=== PATIENT | female | born 1990 | race Caucasian/White ===

== ENCOUNTER 2019-08-17 08:19 | Emergency (ER) | payer BC, SELFPAY ==
[2019-08-17 08:24] VITALS: BP 127/76; PULSE 92; RESP 16; TEMP 36.6; O2SAT 99; BMI 31.3
[2019-08-17 08:46] VITALS: BP 127/76; PULSE 93; RESP 16; O2SAT 97
--- NOTE | 2019-08-17 08:49 | W.ED.GENADLT ---
HPI - General Adult General: Chief complaint: General Medical Stated complaint: heart racing, trouble with vision Time Seen by Provider: 08/17/19 08:49 Source: patient Mode of arrival: ambulatory Limitations: no limitations History of Present Illness: HPI narrative: Patient is a 28-year-old female who presents to ED today with complaints of an episode that occurred while driving today; patient states she began feeling pain behind her eyes, started having tunnel vision, felt anxious that then caused her heart to race and then started developing right-sided headache; patient states that she has had similar episodes previously but never sought evaluation; she does states she has a history of migraines predominantly on the right side behind her right eye; upon arrival patient states chest pain and racing heart has subsided but still complains of right-sided headache; vision is back to normal Location: head and eyes Relieving factors: none Associated symptoms: Reports headache(s) and palpitations (subsided now); Deny chest pain, confusion, dyspnea, nausea, rash or vomiting Treatments prior to arrival: none Review of Systems Const: Denies: fever or chills Eyes: Reports: change in vision, blurry vision and other ( tunnel vision ; vision symptoms have subsided upon arrival) Card: Reports: palpitations (subsided now) and lightheadedness (subsided now ); Denies: chest pain, irregular heart rhythm or shortness of breath when lying down Resp: Denies: shortness of breath, productive cough or pain on inspiration GI: Denies: abdominal pain, nausea, vomiting, heartburn/indigestion or diarrhea : Denies: painful urination Musc: Denies: neck pain, back pain or joint pain Skin/Breast: Denies: rash Neuro: Reports: headache; Denies: numbness in extremities, weakness in extremities, changes in sensation, lack of coordination, difficulty walking, dizziness, vertigo, confusion or slurred speech PFSH ED PFSH: Statuses (acute, chronic, etc) shown below reflect problem list status as previously entered and may not be historically accurate Social History Smoking and tobacco status: former smoker Physical Exam Const: COMMON NORMALS: no apparent distress, oriented x3 and alert GENERAL APPEARANCE: cooperative ORIENTATION/CONSCIOUSNESS: Yes oriented to person, Yes oriented to place and Yes oriented to time HENMT: COMMON NORMALS: normocephalic, head/scalp atraumatic, external ears normal, EAC's normal, TM's normal bilaterally and external nose normal HEAD & SCALP: normal to inspection, normocephalic and atraumatic FACE & SINUS: normal facial exam NOSE: external nose normal EXTERNAL EAR: Yes external ears normal EXTERNAL AUDITORY CANAL: EAC's normal TYMPANIC MEMBRANE: TM's normal bilaterally MOUTH: oral and palatal mucosa normal THROAT: posterior oropharynx normal, tonsils normal and uvula midline Eye: COMMON NORMALS: PERRL and EOMs intact bilaterally PUPIL: Yes PERRL Neck/C-Spine: COMMON NORMALS: full ROM, no lymphadenopathy, supple and no meningeal signs Resp: COMMON NORMALS: normal respiratory effort, no retractions, no use of accessory muscles and clear to auscultation bilaterally AUSCULTATION: clear to auscultation bilaterally Cardio: COMMON NORMALS: regular rate and regular rhythm RATE: regular rate RHYTHM: regular rhythm GI: COMMON NORMALS: normal to inspection, nondistended, normoactive bowel sounds, soft to palpation, non-tender, no hepatosplenomegaly and no masses PALPATION: Yes soft and Yes no hepatosplenomegaly Back/Pelvis: COMMON NORMALS: thoracic and lumbar spine normal to inspection Extremity: COMMON NORMALS: normal to inspection GENERAL: Yes normal exam except as noted Neuro: AMEE COMA SCALE: document GCS findings [place] coma scale eye opening: Spontaneous [place] coma scale verbal response: Orientated [place] coma scale motor response: Obey commands Amee coma scale total score: 15 COMMON NORMALS: oriented x3 and CN's II-XII intact bilaterally SENSORIUM/ORIENTATION: Yes alert, Yes oriented to person, Yes oriented to place and Yes oriented to time MENINGEAL SIGNS: Yes no meningeal signs SPEECH: speech normal GAIT: Yes normal gait Course Vital Signs: Vital signs: Vital Signs Temperature 97.9 F 08/17/19 08:24 Pulse Rate 75 08/17/19 10:51 Respiratory Rate 16 08/17/19 10:51 Blood Pressure 124/79 08/17/19 10:51 Pulse Oximetry 100 08/17/19 10:51 MDM - General Adult MDM Narrative: Medical decision making narrative: Patient has had similar symptoms previously. Work-up today was negative; most likely symptoms are related to an aura associated with migraine headaches. Recommend she follow-up with PCP. Lab Data: Labs: Lab Results 08/17/19 08/17/19 08/17/19 Range/Units 09:00 09:00 09:00 WBC 5.7 (4.0-10.0) 10^3/ uL RBC 4.36 (4.1-5.3) 10^6/u L Hgb 13.9 (11.5-15.3) g/dL Hct 41.0 (37.0-47.0) % MCV 94.0 (81-99) fL MCH 31.9 (28.0-34.0) pg MCHC 33.9 (30.0-36.0) g/dL RDW 11.8 L (12.1-15.1) % Plt Count 168 (130-400) 10^3/c mm MPV 11.6 H (7.4-10.4) fL Neut % (Auto) 64.8 % Lymph % (Auto) 27.3 % Mckenzie % (Auto) 6.4 % Eos % (Auto) 0.7 % Baso % (Auto) 0.4 % Neut # (Auto) 3.7 (1.8-7.7) 10^3/u L Lymph # (Auto) 1.5 (0.8-4.8) 10^3/u L Mckenzie # (Auto) 0.4 (0.2-0.9) 10^3/u L Eos # (Auto) 0.0 (0.0-0.8) 10^3/u L Baso # (Auto) 0.0 (0.0-0.1) 10^3/u L Nucleated RBC % (a uto) 0 % Nucleated RBCs # 0.0 /100WBC Sodium 141 (136-145) mmol/L Potassium 3.9 (3.5-5.1) mmol/L Chloride 106 (98-107) mmol/L Carbon Dioxide 24 (22-29) mmol/L Anion Gap 14.9 (5-19) BUN 8 (6-20) mg/dL Creatinine 0.5 (0.5-0.9) mg/dL GFR Calculation 144.9 H (90-130) mL/min Glucose 111 H (74-109) mg/dL Calcium 9.3 (8.6-10.0) mg/Dl Total Bilirubin 0.4 (0.15-1.2) mg/dL AST 12 (0-32) U/L ALT 10 (0-33) U/L Alkaline Phosphata se 78 (35-105) IU/L Total Protein 6.3 L (6.6-8.7) g/dL Albumin 4.9 (3.5-5.2) g/dL Globulin 1.4 (1.3-4.6) g/dL HCG, Qual Negative (Negative) Urine Color (Yellow) Urine Appearance (CLEAR) Urine pH (5-7) Ur Specific Gravit y (1.005-1.030) Urine Protein (Negative) Urine Glucose (UA) (Normal) Urine Ketones (Negative) Urine Occult Blood (Negative) Urine Nitrate (Negative) Urine Bilirubin (NEGATIVE) Urine Urobilinogen (Negative) mg/dL Ur Leukocyte Jennifer ase (Negative) Urine RBC (0-2) /hpf Urine WBC (0-5) /hpf Ur Squamous Epith Cells (0-5) Urine Bacteria (NONE) Urine Mucus 08/17/19 Range/Units 09:27 WBC (4.0-10.0) 10^3/ uL RBC (4.1-5.3) 10^6/u L Hgb (11.5-15.3) g/dL Hct (37.0-47.0) % MCV (81-99) fL MCH (28.0-34.0) pg MCHC (30.0-36.0) g/dL RDW (12.1-15.1) % Plt Count (130-400) 10^3/c mm MPV (7.4-10.4) fL Neut % (Auto) % Lymph % (Auto) % Mckenzie % (Auto) % Eos % (Auto) % Baso % (Auto) % Neut # (Auto) (1.8-7.7) 10^3/u L Lymph # (Auto) (0.8-4.8) 10^3/u L Mckenzie # (Auto) (0.2-0.9) 10^3/u L Eos # (Auto) (0.0-0.8) 10^3/u L Baso # (Auto) (0.0-0.1) 10^3/u L Nucleated RBC % (a uto) % Nucleated RBCs # /100WBC Sodium (136-145) mmol/L Potassium (3.5-5.1) mmol/L Chloride (98-107) mmol/L Carbon Dioxide (22-29) mmol/L Anion Gap (5-19) BUN (6-20) mg/dL Creatinine (0.5-0.9) mg/dL GFR Calculation (90-130) mL/min Glucose (74-109) mg/dL Calcium (8.6-10.0) mg/Dl Total Bilirubin (0.15-1.2) mg/dL AST (0-32) U/L ALT (0-33) U/L Alkaline Phosphata se (35-105) IU/L Total Protein (6.6-8.7) g/dL Albumin (3.5-5.2) g/dL Globulin (1.3-4.6) g/dL HCG, Qual (Negative) Urine Color Yellow (Yellow) Urine Appearance Clear (CLEAR) Urine pH 6 (5-7) Ur Specific Gravit y 1.010 (1.005-1.030) Urine Protein Neg (Negative) Urine Glucose (UA) Norm (Normal) Urine Ketones Negative (Negative) Urine Occult Blood 3+ H (Negative) Urine Nitrate Negative (Negative) Urine Bilirubin Neg (NEGATIVE) Urine Urobilinogen Norm (Negative) mg/dL Ur Leukocyte Jennifer ase Negative (Negative) Urine RBC 50-80 H (0-2) /hpf Urine WBC None (0-5) /hpf Ur Squamous Epith Cells 0-4 H (0-5) Urine Bacteria Trace (NONE) Urine Mucus 1+ Imaging Data^: CXR: Radiologist's impression: [place] [address] XRay Report Signed Patient: Dora Martel MR#: [id number] : 1990 Acct:[id number] Age/Sex: 28 / F ADM Date: 08/17/19 Loc: ER Attending Dr: Ordering Physician: Devi Roque Date of Service: 08/17/19 Procedure(s): XR chest 1V portable [id number] Accession Number(s): [id number] cc: Devi Roque PROCEDURE INFORMATION: Exam: XR Chest, 1 View Exam date and time: 08/17/2019 8:56 AM Age: 28 years old Clinical indication: Cough; Additional info: Cough/congestion TECHNIQUE: Imaging protocol: XR of the chest Views: 1 view. COMPARISON: No relevant prior studies available. FINDINGS: Lungs: Mild interstitial prominence without acute airspace disease. Pleural space: No pleural effusion. Heart/Mediastinum: No cardiomegaly. Bones/joints: Unremarkable. XR/XR chest 1V portable [id number] IMPRESSION: No acute airspace or pleural disease. Dictated By: Peter José MD 08/17/1933 Signed By: Peter José MD 08/17/1935 CT Head: Radiologist's impression: [place] [address] CT Scan Report Signed Patient: Dora Martel MR#: [id number] : 1990 Acct:[id number] Age/Sex: 28 / F ADM Date: 08/17/19 Loc: ER Attending Dr: Ordering Physician: Devi Roque Date of Service: 08/17/19 Procedure(s): CT head wo con* [id number] Accession Number(s): [id number] cc: Devi Roque PROCEDURE INFORMATION: Exam: CT Head Without Contrast Exam date and time: 08/17/2019 9:30 AM Age: 28 years old Clinical indication: Other: Blurry vision / tunnel vision; Additional info: Villanueva/blurry vision TECHNIQUE: Imaging protocol: Computed tomography of the head without contrast. Total DLP: 769.06 mGy-cm Radiation optimization: All CT scans at this facility use at least one of these dose optimization techniques: automated exposure control; mA and/or kV adjustment per patient size (includes targeted exams where dose is matched to clinical indication); or iterative reconstruction. COMPARISON: No relevant prior studies available. FINDINGS: Brain: Symmetric caliber of cortical sulci. Normal gr-white matter differentiation. No acute cortical infarct, mass effect or intracranial hemorrhage. Ventricles: Normal configuration of the ventricles. Bones/joints: No acute calvarial pathology. Sinuses: No sinus fluid. Mastoid air cells: No mastoid effusion. Soft tissues: Metallic earring with beam hardening artifact. CT/CT head wo con* [id number] IMPRESSION: No acute intracranial pathology. Radiation Dose CTDIVOL = (mGy): DLP = 769.06 (mGy-cm) Dictated By: Peter José MD 08/17/19 1001 Signed By: Peter José MD 08/17/19 1003 EKG Data^: EKG 1: EKG interpretation date: 08/17/19 EKG interpretation time: 08:32 Interpretation: Normal Sinus Rhythm Rate-[address] changes Computer generated interpretation: Chest X-Ray 08/17/19 08:54 IMPRESSION: No acute airspace or pleural disease. Head CT 08/17/19 08:54 IMPRESSION: No acute intracranial pathology. Radiation Dose CTDIVOL = (mGy): DLP = 769.06 (mGy-cm) Discharge Plan Discharge Patient Disposition: Home, Self-Care Clinical Impression: Headache, migraine Qualifiers: Migraine type: with aura Status migrainosus presence: without status migrainosus Intractability: not intractable Qualified Code(s): G43.109 - Migraine with aura, not intractable, without status migrainosus Condition: Stable Prescriptions: No Action No Known Home Medications RF: 0 Discharge Orders: Discharge Order (Routine); Ordered 08/17/19 Ordered By: Devi Roque Referrals: [facility] [Other] Discharge Diet: Usual diet Discharge Activity: Increase activity as tolerated Activity Restrictions/Additional Instructions: Follow up with primary care in the next 1-2 weeks for follow up. May return to ED anytime for continued or worsening symptoms. Discharge Date/Time: 08/17/19 10:53 Coding Level of Care Code ED Working Supervisor for Johanna Lomeli
--- NOTE | 2019-08-17 08:54 | XRR_ITS ---
PROCEDURE INFORMATION: Exam: XR Chest, 1 View Exam date and time: 08/17/2019 8:56 AM Age: 28 years old Clinical indication: Cough; Additional info: Cough/congestion TECHNIQUE: Imaging protocol: XR of the chest Views: 1 view. COMPARISON: No relevant prior studies available. FINDINGS: Lungs: Mild interstitial prominence without acute airspace disease. Pleural space: No pleural effusion. Heart/Mediastinum: No cardiomegaly. Bones/joints: Unremarkable. XR/XR chest 1V portable [id number] IMPRESSION: No acute airspace or pleural disease.
--- NOTE | 2019-08-17 08:54 | CTR_ITS ---
PROCEDURE INFORMATION: Exam: CT Head Without Contrast Exam date and time: 08/17/2019 9:30 AM Age: 28 years old Clinical indication: Other: Blurry vision / tunnel vision; Additional info: Villanueva/blurry vision TECHNIQUE: Imaging protocol: Computed tomography of the head without contrast. Total DLP: 769.06 mGy-cm Radiation optimization: All CT scans at this facility use at least one of these dose optimization techniques: automated exposure control; mA and/or kV adjustment per patient size (includes targeted exams where dose is matched to clinical indication); or iterative reconstruction. COMPARISON: No relevant prior studies available. FINDINGS: Brain: Symmetric caliber of cortical sulci. Normal gr-white matter differentiation. No acute cortical infarct, mass effect or intracranial hemorrhage. Ventricles: Normal configuration of the ventricles. Bones/joints: No acute calvarial pathology. Sinuses: No sinus fluid. Mastoid air cells: No mastoid effusion. Soft tissues: Metallic earring with beam hardening artifact. CT/CT head wo con* [id number] IMPRESSION: No acute intracranial pathology. Radiation Dose CTDIVOL = (mGy): DLP = 769.06 (mGy-cm)
--- NOTE | 2019-08-17 08:54 | ECG_ITS ---
Measurements Intervals [place] Rate: 89 P: 52 VA: 125 QRS: 47 QRSD: 84 T: 49 QT: 337 QTc: 412 SINUS RHYTHM POSSIBLE RIGHT VENTRICULAR CONDUCTION DELAY [RSR (QR) IN V1/V2] No previous ECG available for comparison Electronically Signed On 08-17-2019 17:53:27 [employer] by Bre Arevalo M.D. [email or web address]
[2019-08-17] MEDS: ketorolac 30 mg/mL INJ IVP (09:08)
[2019-08-17] MEDS: sodium chloride 0.9% 1,000 ML 999 ML IV (09:09)
[2019-08-17 09:10] LABS: Basophils % 0.4 %; Eosinophils % 0.7 %; Hemoglobin 13.9 g/dL (11.5-15.3); Lymphocytes # 1.5 10^3/uL (0.8-4.8); Lymphocytes % 27.3 %; Mean Corpuscular HGB Conc 33.9 g/dL (30.0-36.0); Mean Corpuscular Hemoglobin 31.9 pg (28.0-34.0); Mean Platelet Volume 11.6 fL (7.4-10.4); Monocytes # 0.4 10^3/uL (0.2-0.9); Monocytes % 6.4 %; Neutrophils # 3.7 10^3/uL (1.8-7.7); Neutrophils % 64.8 %; Nucleated Red Blood Cells % 0 %; Platelet Count 168 10^3/cmm (130-400); Red Blood Count 4.36 10^6/uL (4.1-5.3); Red Cell Distribution Width 11.8 % (12.1-15.1); White Blood Count 5.7 10^3/uL (4.0-10.0)
[2019-08-17 09:31] LABS: Alanine Aminotransferase 10 U/L (0-33); Albumin Level 4.9 g/dL (3.5-5.2); Alkaline Phosphatase 78 IU/L (35-105); Anion Gap 14.9 (5-19); Aspartate Amino Transferase 12 U/L (0-32); Blood Urea Nitrogen 8 mg/dL (6-20); Calcium 9.3 mg/Dl (8.6-10.0); Carbon Dioxide 24 mmol/L (22-29); Chloride 106 mmol/L (98-107); Globulin 1.4 g/dL (1.3-4.6); Glomerular Filtration Rate 144.9 mL/min (90-130); Glucose 111 mg/dL (74-109); Potassium 3.9 mmol/L (3.5-5.1); Sodium 141 mmol/L (136-145); Total Bilirubin 0.4 mg/dL (0.15-1.2); Total Protein 6.3 g/dL (6.6-8.7)
[2019-08-17 09:34] LABS: HCG, Serum Qual Negative (Negative)
[2019-08-17 09:49] LABS: Add Urine Microscopic? YES; Bilirubin Urine Neg (NEGATIVE); Blood Urine 3+ (Negative); Glucose Urine UA Norm (Normal); Ketones Urine Negative (Negative); Leukocyte Esterase Urine Negative (Negative); Nitrate Urine Negative (Negative); Protein Urine Neg (Negative); Urine Appearance Clear (CLEAR); Urine Color Yellow (Yellow); Urobilinogen Urine Norm (Negative); pH Urine 6 (5-7)
[2019-08-17 09:53] LABS: RBC Urine 50-80 /hpf (0-2); Squamous Epithelial Cell Urine 0-4 (0-5)
[2019-08-17 09:54] LABS: Add Urine Culture? Yes; Bacteria Urine TRACE; Mucus Urine 1+
[2019-08-17 10:23] VITALS: BP 124/79; PULSE 76; RESP 16; O2SAT 98
[2019-08-17 10:51] VITALS: BP 124/79; PULSE 75; RESP 16; O2SAT 100
== END 2019-08-17 10:53 | disposition home or self-care (01) ==
PROVIDERS: Emergency Provider Physician Assistant
DX: G43.109 Migraine with aura, not intractable, without status migrainosus (principal); Z87.891 Personal history of nicotine dependence
CPT/HCPCS: 36415; 70450; 71045; 80053; 81003; 84703; 85025; 87086; 93005; 96360; 96365; 96374; 99282; 99284; J1100; J1885; J7030

== ENCOUNTER → 2019-12-08 14:03 | Outpatient (BNVA) | payer BC, SELFPAY | PROVIDERS: Visit Provider Obstetrics & Gynecology | DX: N94.10 Unspecified dyspareunia (principal); N85.2 Hypertrophy of uterus; N84.1 Polyp of cervix uteri | CPT/HCPCS: 76830 ==

== ENCOUNTER → 2019-12-21 09:13 | Outpatient (BNVA) | payer BC, SELFPAY | PROVIDERS: Visit Provider Obstetrics & Gynecology | DX: Z12.4 Encounter for screening for malignant neoplasm of cervix (principal); R32 Unspecified urinary incontinence | CPT/HCPCS: 80053; 88175 ==

== ENCOUNTER 2021-01-19 22:34 | Emergency (ER) | payer BC, SELFPAY ==
--- NOTE | 2021-01-19 22:59 | XRR_ITS ---
PROCEDURE INFORMATION: Exam: XR Chest Exam date and time: 01/19/2021 10:59 PM Age: 30 years old Clinical indication: Shortness of breath; Additional info: Covid + on January 11. Started symptoms on January 10. Worsening SOB and cough TECHNIQUE: Imaging protocol: XR of the chest. Views: 1 view. COMPARISON: CR XR chest 1V portable [id number] 08/17/2019 9:15 AM FINDINGS: Lungs: There are patchy ground-glass alveolar opacities in both lungs, mostly towards the bases and sparing the left upper lobe. These findings are consistent with the clinical history of COVID-19 infection. There is no pulmonary vascular congestion. Pleural spaces: Unremarkable. No pleural effusion. No pneumothorax. Heart/Mediastinum: Heart is within normal limits of size. Bones/joints: Unremarkable. XR/XR chest 1V portable [id number] IMPRESSION: Bilateral pulmonary alveolar opacities consistent with the clinical diagnosis of COVID-19 infection.
[2021-01-19 23:11] VITALS: BP 123/79; PULSE 110; RESP 22; TEMP 37; O2SAT 96; BMI 34.2
--- NOTE | 2021-01-19 23:40 | ED_ITS ---
HPI - COVID General: Chief Complaint: COVID symptoms Stated Complaint: covid + 01/10, difficulty breathing Time Seen by Provider: 01/19/21 23:25 Triage information: Has fever, cough or shortness of breath . Exposure to COVID + person last 14 days History of Present Illness: HPI Narrative: Patient tested positive for Covid on 01 10 at [facility]. Patient said she had had some symptoms a couple days prior to that. Patient complains about headache nausea vomiting diarrhea and muscle aches since then and having some shortness of breath today. MD complaint: known COVID positive Prior covid testing: yes, results known COVID 19 common symptoms: positive dyspnea, fatigue, body aches, headache(s), loss of sense of smell and/or taste, nausea, vomiting and diarrhea; negative throat pain or nasal congestion COVID 19 other sytmptoms: negative chest pain Severity: moderate Treatment prior to arrival: none COVID Results: No Data to Display Review of Systems Const: Reports: body aches and fatigue Eyes: Denies: change in vision or blurry vision ENMT: Denies: throat pain or nasal congestion Card: Denies: chest pain or dyspnea on exertion Resp: Reports: dyspnea GI: Reports: nausea, vomiting and diarrhea Musc: Denies: extremity pain Skin/Breast: Denies: rash Neuro: Reports: headache(s) Psych: Denies: anxiety or depression Adolfo/Lymph: Denies: easy bruising PFS ED PFSH: Medical History (Updated 01/20/21 @ 00:42 by JARED Palafox) No pertinent past medical history Denies: Hypertension, hypercholesterolemia, heart, liver, lung disease, thyroid problems, DVT/PE. Surgical History S/P adenoidectomy As a child S/P section In [address] Samuels at [facility] [place] for twin gestation S/P tubal ligation Performed at time of in 2016 Family History Father Heart disease Grandmother Diabetes Paternal Hypertension Paternal Grandfather Diabetes Paternal Family/Other Diabetes Paternal aunt and uncle Thyroid condition Paternal Aunt, Maternal Niece Denies family history of Colon cancer Ovarian cancer Hyperlipidemia Breast cancer Uterine cancer Social History (Updated 07/30/20 @ 22:13 by ANITA Carter) Smoking and tobacco status: never smoked Alcohol intake: never Caregiver/support person: Yes Lives independently: Yes Household members: spouse and children Housing: House Marital status: Number of children: 4 Highest education level completed: High School Graduate Current occupational status: employed Sexually active: Yes Current gender identity: Female Additional social history: - Tobacco Use: Denies past or current use Alcohol Use: Denies Drug Use: Denies Work/Study Status: 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[place], [place] Female Reproductive History: Date of last menstrual period: 06/29/20 Physical Exam Const: COMMON NORMALS: no acute distress and average body habitus GENERAL APPEARANCE: cooperative Resp: COMMON NORMALS: normal respiratory effort, No retractions and No use of accessory muscles GI: INSPECTION: Yes normal to inspection Psych: COMMON NORMALS: mental status grossly normal Course Vital Signs: Vital signs: Vital Signs Temperature 98.6 F 01/19/21 23:11 Pulse Rate 94 01/20/21 01:01 Respiratory Rate 18 01/20/21 01:01 Blood Pressure 122/72 01/19/21 23:53 Pulse Oximetry 95 01/20/21 01:01 MDM - COVID MDM Narrative: Medical decision making narrative: Patient's x-ray did show Covid-like signs pulse ox did fine throughout the visit she is toward the end of her 13 days positive test patient given a pulse ox. She has no co morbidities that qualify her for monoclonal antibody treatment. COVID Results: No Data to Display Discharge Plan Discharge Patient Disposition: Home Clinical Impression: COVID-19 Condition: Stable Prescriptions: No Action [id number] 3.5-10,000-1 mg/mL-unit/mL-% drops,suspension 4 drp otic (ear) TID 10 Days Qty: 10 RF: 0 ibuprofen 800 mg tablet 800 mg PO BID PRN (Reason: pain) Qty: 60 RF: 0 Contrave 8-90 mg tablet extended release 2 tab PO Q12H Qty: 120 RF: 0 Discharge Orders: Discharge ED (Routine); Ordered 01/20/21 Ordered By: William José Discharge Diet: Usual diet Discharge Activity: Increase activity as tolerated Patient Instructions: Viral Syndrome (ED) Activity Restrictions/Additional Instructions: Follow basic Covid precautions isolate self for another couple 3 days can take Tylenol and/or ibuprofen. Monitor pulse ox. Follow-up with family medical provider return here if worsening symptoms. Coding Level of Care Code ED Personnel Coordinator for Johanna Lomeli Exam Expanded Problem Focused
[2021-01-19] MEDS: ondansetron 4 MG Tablet PO (23:41)
[2021-01-19] MEDS: sodium chloride 0.9% 1,000 ML 999 ML IV (23:51)
[2021-01-19 23:53] VITALS: BP 122/72; PULSE 101; RESP 18; O2SAT 93; O2SAT 94
[2021-01-20 00:59] VITALS: PULSE 93; O2SAT 94
[2021-01-20] MEDS: ketorolac 30 mg/mL INJ IVP (00:59)
[2021-01-20 01:01] VITALS: PULSE 94; RESP 18; O2SAT 95
== END 2021-01-20 01:02 | disposition home or self-care (01) ==
PROVIDERS: Emergency Provider Nurse Practitioner Family
DX: U07.1 COVID-19 (principal)
CPT/HCPCS: 71045; 96361; 96374; 99283; J1885; J7030; Q0162

== ENCOUNTER → 2023-01-22 10:05 | Outpatient (BNVA) | payer SELFPAY | PROVIDERS: PCP Nurse Practitioner; Referring Provider Nurse Practitioner; Visit Provider Dermatology | DX: Z01.89 Encounter for other specified special examinations (principal) ==

== ENCOUNTER → 2025-06-21 10:00 | Outpatient (BNVA) | payer BC, SELFPAY | PROVIDERS: PCP Clinical Nurse Specialist Adult Health; Visit Provider Clinical Nurse Specialist Adult Health | DX: F41.1 Generalized anxiety disorder (principal) | CPT/HCPCS: 80053; 80061; 82306; 82607; 82672; 83001; 84443; 85025 ==

== ENCOUNTER → 2025-07-23 08:32 | Outpatient (BNVA) | payer BC, SELFPAY | PROVIDERS: PCP Clinical Nurse Specialist Adult Health; Visit Provider Clinical Nurse Specialist Adult Health | DX: D69.6 Thrombocytopenia, unspecified (principal) | CPT/HCPCS: 85025 ==